=== PATIENT | male | born 1975 | race Caucasian/White ===

== ENCOUNTER 2025-08-15 01:00 | Emergency (ER) | payer SELFPAY ==
[2025-08-15 01:08] VITALS: BP 172/101; PULSE 115; RESP 18; TEMP 38.1; O2SAT 95; BMI 26.5
[2025-08-15] MEDS: acetaminophen 1,000 MG/100 ML PIGGYBACK 400 MG IV (01:24)
[2025-08-15 01:28] LABS: Hematocrit 42.9 % (37-53); Hemoglobin 14.80 g/dL (11.27-16.99); Mean Corpuscular HGB Conc 34.5 g/dL (30-55); Mean Corpuscular Hemoglobin 31.6 pg (27-33); Mean Corpuscular Volume 91.5 fl (82-101); Nucleated Red Blood Cells % 0 %; Platelet Count 196 10^3/cmm (157-399); Red Blood Count 4.69 10^6/uL (3.85-5.65); White Blood Count 9.61 10^3/uL (3.29-11.43)
[2025-08-15 01:43] LABS: Alanine Aminotransferase 62 U/L (0-41); Albumin Level 4.7 g/dL (3.5-5.2); Alkaline Phosphatase 80 U/L (40-130); Anion Gap 19.8 (5-19); Aspartate Amino Transferase 43 U/L (0-40); Blood Urea Nitrogen 23 mg/dL (6-20); Calcium 9.9 mg/dL (8.5-10.5); Carbon Dioxide 22 mmol/L (22-29); Chloride 96 mmol/L (98-107); Creatinine Clr Calc Pharmacy 123.5707; Globulin 3.4 g/dL (1.3-4.6); Glucose 116 mg/dL (65-115); Osmolality Calculated 283 mOsm/kg (285-295); Potassium 3.8 mmol/L (3.5-5.1); Sodium 134 mmol/L (136-145); Total Protein 8.1 g/dL (6.6-8.7)
[2025-08-15 01:44] LABS: Lactic Sepsis W/Reflex 1.0 mmol/L (0.5-2.2)
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
--- NOTE | 2025-08-15 02:33 | XRR_ITS ---
PROCEDURE INFORMATION: Exam: XR Chest Exam date and time: 08/15/2025 2:39 AM Age: 50 years old Clinical indication: Cough; Additional info: Flu like SX, sirs+ TECHNIQUE: Imaging protocol: Radiologic exam of the chest. Views: 1 view. COMPARISON: No relevant prior studies available. FINDINGS: Lungs: Left lower lobe airspace opacity, concerning for airspace disease. Pleural spaces: Unremarkable. No pleural effusion. No pneumothorax. Heart/Mediastinum: Unremarkable. No cardiomegaly. Bones/joints: Unremarkable. Other findings: . XR/XR chest 1V portable [id number] IMPRESSION: Left lower lobe airspace opacity, concerning for airspace disease.
[2025-08-15 02:43] VITALS: TEMP 37.2
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
[2025-08-15 03:30] VITALS: BP 143/77; PULSE 86; O2SAT 93
[2025-08-15] MEDS: tetracaine 0.5% Op Soln 4 mL Btl 1 DROP EYE-LEFT (03:43)
[2025-08-15 04:00] VITALS: BP 143/85; PULSE 89
== END 2025-08-15 04:57 | disposition home or self-care (01) ==
PROVIDERS: Emergency Provider Student in an Organized Health Care Education/Training Program
DX: J18.9 Pneumonia, unspecified organism (principal); S00.12XA Contusion of left eyelid and periocular area, initial encounter; S09.93XA Unspecified injury of face, initial encounter; W50.0XXA Accidental hit or strike by another person, initial encounter
CPT/HCPCS: 70450; 70486; 71045; 72125; 72126; 80053; 83605; 85025; 96365; 99285; J0131; J9999